=== PATIENT | female | born 1930 | race Caucasian/White ===

== ENCOUNTER 2017-04-08 20:07 | Emergency (ER) | payer BC, OTHER ==
[~2017-04-08] VITALS: Ht 160 cm; Wt 51.7 kg
[2017-04-08 21:13] LABS: Basophils # (auto) 0 uL; Basophils % (auto) 0.6 % (0.0-2.0); Eosinophils # (auto) 0.1 uL; Eosinophils % (auto) 1.7 % (0.0-7.0); Hematocrit 40.8 % (36.0-46.0); Hemoglobin 13.5 g/dL (12.2-16.2); Lymphocytes % (auto) 18.5 % (10.0-50.0); Mean Corpuscular Hemoglobin 29.7 pg (28.0-32.0); Mean Corpuscular Hgb Conc. 33.2 g/dL (32.0-36.0); Mean Corpuscular Volume 89.6 fL (80.0-100.0); Mean Platelet Volume 7.4 fL (6.9-10.8); Monocytes # (auto) 0.5 uL; Monocytes % (auto) 8.9 % (0.0-12.0); Neutrophils # (auto) 3.8 uL; Neutrophils % (auto) 70.3 % (37.0-80.0); Platelet Count (auto) 288 10^3/uL (140-450); Red Cell Distribution Width 13.4 % (11.8-14.3); White Blood Cell 5.4 10^3/uL (4.4-10.8)
[2017-04-08] MEDS ORDERED: SODIUM CHLORIDE 0.9% 1,000 ML IV ONE (21:15)
[2017-04-08 21:28] LABS: INR 1.04 (0.9-1.15)
[2017-04-08 21:45] LABS: Temperature: 22.7 C (20.0-25.0)
[2017-04-08 22:03] LABS: Albumin 3.3 g/dL (3.4-5.0); Anion Gap 10 (5-15); Blood Urea Nitrogen 18 mg/dL (7-18); Calcium 8.2 mg/dL (8.5-10.1); Carbon Dioxide 23 mmol/L (21-32); Chloride 109 mmol/L (98-107); Glucose 92 mg/dL (74-106); Potassium 3.2 mmol/L (3.5-5.1); Sodium 142 mmol/L (136-145)
[2017-04-08 22:05] LABS: Aspartate Aminotransferase 24 U/L (15-37); BUN/Creatinine Ratio 25.4; GFR African American 101 mL/min; GFR Non-African American 83 mL/min
[2017-04-08 22:10] LABS: Alkaline Phosphatase 51 U/L (45-117); Bilirubin, Total 0.2 mg/dL (0.2-1.0); Total Protein 6.9 g/dL (6.4-8.2)
[2017-04-08 23:45] VITALS: BP 130/59
== END 2017-04-09 01:24 | disposition left against medical advice (07) ==
LOC: EDBD 20:07 → ER 20:12
DX: R55 Syncope and collapse (principal); R42 Dizziness and giddiness; G31.9 Degenerative disease of nervous system, unspecified
CPT/HCPCS: 36415; 70450; 71010; 80053; 82962; 83735; 83880; 84484; 85025; 85379; 85610; 85730; 93005; 96360; 99285; J7030